=== PATIENT | female | born 1990 | race African-American/Black ===

== ENCOUNTER 2019-01-18 12:34 | Inpatient (IN) ==
--- OUTSIDE RECORDS SUMMARY | 2019-01-18 12:38 | External Medical Summary | Continuity of Care Document ---
:1990 Author Name Josephine Hollingsworth, Provider Address Unavailable Unavailable , Care Team Providers Name Role Phone Aundrea Rivers M.D. Unavailable [email or web address] Unavailable Unavailable Unavailable Problems BCP ( control pills) initiation (V25.01) (Z30.011) Normal (V22.2) (Z34.90) Allergies and Adverse Reactions No Known Allergies (Allergy) Medications Vitamins TABS Refills: 0 Procedures BCP ( control pills) initiation Immunizations Immunizations not documented Plan of Treatment Planned Observations Planned Goals not documented Results No Known Results Results not documented
[2019-01-18 13:18] LABS: Hematocrit (blood only) 41.8 % (37-47); Hemoglobin 14.2 g/dL (12.0-16.0); Mean Corpuscular Volume 88.6 fL (80-100); Platelet Count 205 K/uL (130-400); RDW Coefficient of Variation 13.5 % (11.5-14.5); RDW Standard Deviation 44.2 fL (36.4-46.3); Red Blood Count 4.72 M/uL (4.2-5.4)
[2019-01-18] MEDS ORDERED: MoRPHine SULFATE 4 MG/ML 1 ML CARP\\VIAL IV STA ×2 (13:21→15:20)
[2019-01-18] MEDS ORDERED: ONDANSETRON INJ 2 MG/ML 2 ML VIAL IV STA (13:21)
[2019-01-18] MEDS ORDERED: SODIUM CHLORIDE 0.9% 1000ML 1,000 ML IV ONE ×2 (13:21→15:09)
[2019-01-18 13:24] LABS: Appearance Urine Turbid (Clear); Bacteria Urine Automated Negative (Negative); Blood Urine 3+ (Negative); Color Urine Orange; Epithelial Cell Urine Auto >30 /lpf (0-5); Glucose Urine UA Negative (Negative); Ketones Urine 1+ (Negative); Leukocyte Esterase Urine Trace (Negative); Nitrite Urine Positive (Negative); Protein Urine 2+ (Negative); Specific Gravity Urine > 1.045 (1.000-1.030); Urobilinogen Urine Negative (Negative); WBC Urine Automated >30 /hpf (0-5)
--- NOTE | 2019-01-18 13:30 | Emergency Department Note ---
History of Present Illness General Chief complaint: Abdominal Pain Stated complaint: ABDOMINAL PAIN, UPPER VAGINAL PRESSURE, Time Seen by Provider: 01/18/19 13:01 History of Present Illness Maximum Pain Intensity: 8 This patient is a 28-year-old female who presents to the emergency department via private vehicle for evaluation of lower abdominal pain that started last night. Is gotten progressively worse since. It is worse with any movement. She also complains of a pressure-like sensation when she tries to urinate. She denies any hematuria or dysuria. She reports feeling feverish last night with chills and sweats, but did not take her temperature at home. She has tried anti-inflammatories with minimal relief. Last menstrual cycle was January 01 and reportedly normal. No new sexual partners or dyspareunia reported. She does have a history of ovarian cyst. Home Medications Home Medications Medication Instructions Recorded Confirmed Type ibuprofen 400 mg PO Q6H PRN 01/18/19 01/18/19 History Allergies Allergy/AdvReac Type Severity Reaction Status Date / Time nickel Allergy Mild RASH Unverified 01/18/19 14:00 tramadol AdvReac Unknown Unverified 01/18/19 14:03 Past Med/Surg History Medical History Ovarian cyst Social History Preferred Language: Slovenian Communication Ability: Effective Repair Weaver Required: No Beliefs That Will Affect Care: None Current Living Situation: Family and Significant Other Current Living Situation Comment: Boyfriend and brother Other Information That Helps Us Care for You: No Feels Safe at Home: Yes Safety Concerns: Feels Safe At This Time Smoking Status: Current every day smoker Tobacco Type: cigarettes ; Cigarettes Per Day: 20 ; Do You Dip or Chew Tobacco: No ; Second Hand Exposure: No ; Tobacco Cessation Education Requested by Patient: No Hx Alcohol Use: Yes Hx Substance Use: No Review of Systems A total of 10 systems reviewed and were otherwise negative Physical Exam Vital Signs Vital Signs - 24 hr 01/18/19 12:48 01/18/19 14:45 01/18/19 16:02 Temperature 37.0 C Temperature Source Oral Sepsis Recent Fever Within 48 Hours No Sepsis New/Unexplained Change in Mental Status No Sepsis Action Taken by Nursing No Action Required Pulse Rate 120 H Pulse Rate [Apical] 81 95 H Respiratory Rate 20 18 18 Respiratory Effort / Characteristics Non-Labored Spontaneous Respiratory Depth Normal Blood Pressure 123/80 Blood Pressure [Left Radial Artery] 132/83 139/68 Blood Pressure Mean 94 Blood Pressure Mean [Left Radial Artery] 99 91 Blood Pressure Position Sitting Pulse Oximetry 99 98 98 Oxygen Delivery Method Room Air Constitutional WD/WN, vitals as above Eyes EOM intact bilaterally ENMT external ear and nose normal, oropharynx normal Neck trachea midline Respiratory normal respiratory effort, lungs clear to auscultation Cardiovascular RRR, no murmur, no edema Gastrointestinal (Abdomen) Tenderness to palpation over the suprapubic region. Guarding in the area noted. Bowel sounds present, but hypoactive. Mild bilateral equal CVA tenderness bilaterally. Musculoskeletal no cyanosis or clubbing, extremities motor strength 5/5 Skin no rashes, warm and dry Neurologic Alert and oriented x3. No focal motor deficits. Psychiatric Acting appropriately Course Patient was seen and examined Vital signs including blood pressure were reviewed medications list was verified with patient Labs were obtained, and a saline lock was established The patient was ordered morphine 4 mg IV, Zofran 4 mg IV and 1 L of normal saline Imaging was performed and reviewed Upon reassessment, the patient's pain is coming back. She was ordered 2 additional doses of IV pain medication. The case was discussed with my supervising physician who is in agreement with my plan. The case was discussed with FRONT END LOADER DRIVER. They recommended giving the patient off oxygen in addition to doxycycline. These were ordered. The patient was updated. She was in agreement with the plan. Case management was involved. The patient will be evaluated by FRONT END LOADER DRIVER for further management. Consultations Consultation #1: Dr. Eduardo Administered Medications Acetaminophen (Tylenol) 650 mg PO Q4H PRN PRN Reason: Pain or Fever Stop: 02/17/19 17:39 Last Admin: 01/18/19 21:17 Dose: 650 mg Documented by: [id number] Docusate Sodium (Colace) 100 mg PO BID PRN PRN Reason: Constipation Stop: 02/18/19 20:59 Last Admin: 01/19/19 14:03 Dose: 100 mg Documented by: [id number] Doxycycline Hyclate (Vibramycin) 100 mg PO BID PRISCA; Protocol Stop: 01/29/19 08:59 Last Admin: 01/20/19 08:08 Dose: 100 mg Documented by: [id number] Admin: 01/19/19 20:51 Dose: 100 mg Documented by: [id number] Admin: 01/19/19 08:55 Dose: 100 mg Documented by: [id number] Lactated Ringer's (Lr) 1,000 mls @ 75 mls/hr IV .[id number] PRISCA Stop: 02/17/19 17:44 Last Infusion: 01/20/19 14:13 Dose: 75 mls/hr Documented by: [id number] Admin: 01/20/19 13:17 Dose: 75 mls/hr Documented by: [id number] Infusion: 01/20/19 13:17 Dose: 75 mls/hr Documented by: [id number] Infusion: 01/20/19 12:34 Dose: 75 mls/hr Documented by: [id number] Infusion: 01/20/19 11:59 Dose: 0 mls/hr Documented by: [id number] Admin: 01/19/19 23:41 Dose: 75 mls/hr Documented by: [id number] Infusion: 01/19/19 23:18 Dose: 75 mls/hr Documented by: [id number] Infusion: 01/19/19 19:12 Dose: 75 mls/hr Documented by: [id number] Infusion: 01/19/19 14:10 Dose: 75 mls/hr Documented by: [id number] Infusion: 01/19/19 12:35 Dose: 75 mls/hr Documented by: [id number] Infusion: 01/19/19 11:33 Dose: 0 mls/hr Documented by: [id number] Admin: 01/19/19 08:56 Dose: 75 mls/hr Documented by: [id number] Infusion: 01/19/19 08:56 Dose: 75 mls/hr Documented by: [id number] Infusion: 01/19/19 06:15 Dose: 75 mls/hr Documented by: [id number] Infusion: 01/19/19 05:39 Dose: 0 mls/hr Documented by: [id number] Infusion: 01/19/19 00:25 Dose: 75 mls/hr Documented by: [id number] Infusion: 01/18/19 23:51 Dose: 0 mls/hr Documented by: [id number] Admin: 01/18/19 18:55 Dose: 75 mls/hr Documented by: [id number] Acetaminophen (Ofirmev) 1,000 mg in 100 mls @ 400 mls/hr IV Q8H PRN PRN Reason: Moderate Pain Stop: 02/17/19 17:48 Last Infusion: 01/19/19 12:35 Dose: 0 mls/hr Documented by: [id number] Admin: 01/19/19 12:13 Dose: 400 mls/hr Documented by: [id number] Infusion: 01/19/19 01:15 Dose: 0 mls/hr Documented by: [id number] Admin: 01/19/19 00:59 Dose: 400 mls/hr Documented by: [id number] Cefoxitin Sodium 2,000 mg/ (Dextrose) 60 mls @ 100 mls/hr IV Q6H [facility]; Protocol Stop: 01/29/19 00:00 Last Infusion: 01/20/19 12:34 Dose: 0 mls/hr Documented by: [id number] Admin: 01/20/19 11:58 Dose: 100 mls/hr Documented by: [id number] Infusion: 01/20/19 06:35 Dose: 0 mls/hr Documented by: [id number] Admin: 01/20/19 05:50 Dose: 100 mls/hr Documented by: [id number] Infusion: 01/20/19 00:20 Dose: 0 mls/hr Documented by: [id number] Admin: 01/19/19 23:42 Dose: 100 mls/hr Documented by: [id number] Infusion: 01/19/19 23:42 Dose: 0 mls/hr Documented by: [id number] Infusion: 01/19/19 18:38 Dose: 0 mls/hr Documented by: [id number] Admin: 01/19/19 18:04 Dose: 100 mls/hr Documented by: [id number] Infusion: 01/19/19 12:14 Dose: 0 mls/hr Documented by: [id number] Admin: 01/19/19 11:32 Dose: 100 mls/hr Documented by: [id number] Infusion: 01/19/19 06:15 Dose: 0 mls/hr Documented by: [id number] Admin: 01/19/19 05:39 Dose: 100 mls/hr Documented by: [id number] Infusion: 01/19/19 00:25 Dose: 0 mls/hr Documented by: [id number] Admin: 01/18/19 23:51 Dose: 100 mls/hr Documented by: [id number] Ibuprofen (Motrin) 600 mg PO Q6H PRN PRN Reason: Headache or Pain Stop: 02/19/19 07:49 Last Admin: 01/20/19 11:59 Dose: 600 mg Documented by: [id number] Ioversol (Optiray 320 100ml) 94 ml IV ONCE PRN PRN Reason: Interaction Checking Stop: 01/22/19 16:10 Last Admin: 01/18/19 16:13 Dose: 1 ml Documented by: [id number] Ketorolac Tromethamine (Toradol) 30 mg IV Q6H PRN PRN Reason: Pain Stop: 01/23/19 17:48 Last Admin: 01/19/19 20:22 Dose: 30 mg Documented by: [id number] Admin: 01/19/19 13:43 Dose: 30 mg Documented by: [id number] Admin: 01/19/19 07:15 Dose: 30 mg Documented by: [id number] Admin: 01/18/19 22:04 Dose: 30 mg Documented by: [id number] Miscellaneous (Remove Nicoderm Patch) 1 ea N/A HS [facility] Stop: 02/19/19 08:58 Last Admin: 01/20/19 08:10 Dose: 1 ea Documented by: [id number] Nicotine (Nicoderm Cq) 21 mg TD QAM [facility] Stop: 02/18/19 20:14 Last Admin: 01/20/19 08:11 Dose: 21 mg Documented by: [id number] Admin: 01/19/19 20:11 Dose: 21 mg Documented by: [id number] Ondansetron HCl (Zofran) 4 mg IV Q6H PRN PRN Reason: Nausea And Vomiting Stop: 02/17/19 17:39 Last Admin: 01/19/19 17:25 Dose: 4 mg Documented by: [id number] Admin: 01/18/19 19:00 Dose: 4 mg Documented by: [id number] Oxycodone/Acetaminophen (Percocet 5mg/325mg) 1 tab PO Q4H PRN PRN Reason: Pain Stop: 02/02/19 23:07 Last Admin: 01/20/19 13:14 Dose: 1 tab Documented by: [id number] Admin: 01/20/19 08:08 Dose: 1 tab Documented by: [id number] Admin: 01/20/19 00:33 Dose: 1 tab Documented by: [id number] Simethicone (Mylicon) 80 mg PO Q6H PRN PRN Reason: Gas or Constipation Stop: 02/18/19 13:48 Last Admin: 01/19/19 20:51 Dose: 80 mg Documented by: [id number] Admin: 01/19/19 14:39 Dose: 80 mg Documented by: [id number] Zolpidem Tartrate (Ambien) 5 mg PO HS PRN PRN Reason: Sleep Stop: 02/17/19 17:39 Last Admin: 01/20/19 00:26 Dose: 5 mg Documented by: [id number] Admin: 01/19/19 20:51 Dose: 5 mg Documented by: [id number] Admin: 01/19/19 01:36 Dose: 5 mg Documented by: [id number] Admin: 01/18/19 23:10 Dose: 5 mg Documented by: [id number] Discontinued Medications Docusate Sodium (Colace) Confirm Administered Dose 100 mg .ROUTE .STK-MED ONE Stop: 01/19/19 14:00 Last Admin: 01/19/19 16:48 Dose: Not Given Documented by: [id number] Doxycycline Hyclate (Vibramycin) 100 mg PO NOW STA Stop: 01/18/19 17:39 Last Admin: 01/18/19 17:59 Dose: 100 mg Documented by: [id number] Hydromorphone HCl (Dilaudid) 0.5 mg IV NOW STA Stop: 01/18/19 16:54 Last Admin: 01/18/19 17:08 Dose: 0.5 mg Documented by: [id number] Hydromorphone HCl (Dilaudid) 1 mg IV Q2H PRN PRN Reason: Pain Stop: 02/01/19 17:48 Last Admin: 01/19/19 16:58 Dose: 1 mg Documented by: [id number] Admin: 01/19/19 07:55 Dose: 1 mg Documented by: [id number] Sodium Chloride (Nss 1000ml) 1,000 mls @ 999 mls/hr IV .Q1H1M ONE Stop: 01/18/19 14:21 Last Infusion: 01/18/19 15:23 Dose: 0 mls/hr Documented by: [id number] Admin: 01/18/19 13:29 Dose: 999 mls/hr Documented by: [id number] Sodium Chloride (Nss 1000ml) 1,000 mls @ 999 mls/hr IV .Q1H1M ONE Stop: 01/18/19 16:09 Last Infusion: 01/18/19 16:44 Dose: 0 mls/hr Documented by: [id number] Admin: 01/18/19 15:18 Dose: 999 mls/hr Documented by: [id number] Ceftriaxone Sodium (Rocephin) 1,000 mg in 50 mls @ 100 mls/hr IV NOW STA Stop: 01/18/19 15:38 Last Infusion: 01/18/19 16:03 Dose: 0 mls/hr Documented by: [id number] Admin: 01/18/19 15:19 Dose: 100 mls/hr Documented by: [id number] Metronidazole (Flagyl) 500 mg in 100 mls @ 100 mls/hr IV NOW STA Stop: 01/18/19 17:50 Last Admin: 01/18/19 18:16 Dose: Not Given Documented by: [id number] Cefoxitin Sodium (Mefoxin) 2,000 mg in 60 mls @ 100 mls/hr IV NOW STA Stop: 01/18/19 18:13 Last Infusion: 01/18/19 18:40 Dose: 0 mls/hr Documented by: [id number] Admin: 01/18/19 17:59 Dose: 100 mls/hr Documented by: [id number] Morphine Sulfate (Morphine Sulfate) 4 mg IV NOW STA Stop: 01/18/19 13:22 Last Admin: 01/18/19 13:28 Dose: 4 mg Documented by: [id number] Morphine Sulfate (Morphine Sulfate) 4 mg IV NOW STA Stop: 01/18/19 15:21 Last Admin: 01/18/19 15:26 Dose: 4 mg Documented by: [id number] Ondansetron HCl (Zofran) 4 mg IV NOW STA Stop: 01/18/19 13:22 Last Admin: 01/18/19 13:28 Dose: 4 mg Documented by: [id number] Medical Decision Making Medical Records Attestation: I reviewed the patient's medical records. Home Medications Current Medication List: was personally reviewed by me Laboratory Data Attestation: I reviewed the patient's lab results. Result diagrams: 01/20/19 09:00 01/18/19 13:08 Lab Results 01/18/19 01/18/19 01/18/19 Range/Units 13:08 13:08 13:10 WBC 23.80 H (4.8-10.8) K/uL RBC 4.72 (4.2-5.4) M/uL Hgb 14.2 (12.0-16.0) g/dL Hct 41.8 (37-47) % MCV 88.6 (80-100) fL MCH 30.1 (25-34) pg MCHC 34.0 (32-36) g/dL RDW Std Deviation 44.2 (36.4-46.3) fL RDW Coeff of [place] 13.5 (11.5-14.5) % Plt Count 205 (130-400) K/uL MPV 11.0 H (7.4-10.4) fL Immature Gran % (Auto) 0.5 % Neut % (Auto) 91.1 % Lymph % (Auto) 3.9 % Hood % (Auto) 4.5 % Eos % (Auto) 0.0 % Baso % (Auto) 0.0 % Immature Gran # (Auto) 0.11 H (0.00-0.02) K/uL Neut # (Auto) 21.68 H (1.4-6.5) K/uL Lymph # (Auto) 0.92 L (1.2-3.4) K/uL Hood # (Auto) 1.08 H (0.11-0.59) K/uL Eos # (Auto) 0.00 (0-0.5) K/uL Baso # (Auto) 0.01 (0-0.2) K/uL Sodium 138 (136-145) mmol/L Potassium 3.4 L (3.5-5.1) mmol/L Chloride 104 (98-107) mmol/L Carbon Dioxide 27 (21-32) mmol/L Anion Gap 7.0 (3-11) BUN 14 (7-18) mg/dl Creatinine 0.76 (0.6-1.2) mg/dl Est Cr Clr Drug Dosing Not Reportable Est GFR ( Amer) 125.5 Est GFR (Non-Af Amer) 108.3 BUN/Creatinine Ratio 18.3 (10-20) Glucose 103 H (70-99) mg/dl Calcium 8.8 (8.5-10.1) mg/dl Total Bilirubin 0.8 (0.2-1) mg/dl AST 9 L (15-37) U/L ALT 13 (12-78) U/L Alkaline Phosphatase 72 (45-117) U/L Total Protein 7.1 (6.4-8.2) gm/dl Albumin 3.6 (3.4-5.0) gm/dl Globulin 3.5 (2.5-4.0) gm/dl Albumin/Globulin Ratio 1.0 (0.9-2) Lipase 40 L (73-393) U/L HCG, Qual (Negative) Urine Color Urine Appearance (Clear) Urine pH (4.5-7.5) Ur Specific Gonzales (1.000-1.030) Urine Protein (Negative) Urine Glucose (UA) (Negative) Urine Ketones (Negative) Urine Blood (Negative) Urine Nitrite (Negative) Urine Bilirubin (Negative) Urine Urobilinogen (Negative) Ur Leukocyte Esterase (Negative) Urine WBC (Auto) (0-5) /hpf Urine RBC (Auto) (0-4) /hpf U Hyaline Cast (Auto) (0-5) /lpf U Epithel Cells (Auto) (0-5) /lpf Urine Bacteria (Auto) (Negative) Urine Mucus (None Prsent) Urine Yeast POC Ur Test NEG (NEG) 01/18/19 01/18/19 Range/Units 13:10 15:08 WBC (4.8-10.8) K/uL RBC (4.2-5.4) M/uL Hgb (12.0-16.0) g/dL Hct (37-47) % MCV (80-100) fL MCH (25-34) pg MCHC (32-36) g/dL RDW Std Deviation (36.4-46.3) fL RDW Coeff of [place] (11.5-14.5) % Plt Count (130-400) K/uL MPV (7.4-10.4) fL Immature Gran % (Auto) % Neut % (Auto) % Lymph % (Auto) % Hood % (Auto) % Eos % (Auto) % Baso % (Auto) % Immature Gran # (Auto) (0.00-0.02) K/uL Neut # (Auto) (1.4-6.5) K/uL Lymph # (Auto) (1.2-3.4) K/uL Hood # (Auto) (0.11-0.59) K/uL Eos # (Auto) (0-0.5) K/uL Baso # (Auto) (0-0.2) K/uL Sodium (136-145) mmol/L Potassium (3.5-5.1) mmol/L Chloride (98-107) mmol/L Carbon Dioxide (21-32) mmol/L Anion Gap (3-11) BUN (7-18) mg/dl Creatinine (0.6-1.2) mg/dl Est Cr Clr Drug Dosing Est GFR ( Amer) Est GFR (Non-Af Amer) BUN/Creatinine Ratio (10-20) Glucose (70-99) mg/dl Calcium (8.5-10.1) mg/dl Total Bilirubin (0.2-1) mg/dl AST (15-37) U/L ALT (12-78) U/L Alkaline Phosphatase (45-117) U/L Total Protein (6.4-8.2) gm/dl Albumin (3.4-5.0) gm/dl Globulin (2.5-4.0) gm/dl Albumin/Globulin Ratio (0.9-2) Lipase (73-393) U/L HCG, Qual Negative (Negative) Urine Color Bledsoe Urine Appearance Turbid A (Clear) Urine pH 6.0 (4.5-7.5) Ur Specific Gonzales > 1.045 H (1.000-1.030) Urine Protein 2+ H (Negative) Urine Glucose (UA) Negative (Negative) Urine Ketones 1+ H (Negative) Urine Blood 3+ H (Negative) Urine Nitrite Positive A (Negative) Urine Bilirubin Negative (Negative) Urine Urobilinogen Negative (Negative) Ur Leukocyte Esterase Trace H (Negative) Urine WBC (Auto) >30 H (0-5) /hpf Urine RBC (Auto) >30 H (0-4) /hpf U Hyaline Cast (Auto) 1-5 (0-5) /lpf U Epithel Cells (Auto) >30 H (0-5) /lpf Urine Bacteria (Auto) Negative (Negative) Urine Mucus Present A (None Prsent) Urine Yeast Not Reportable POC Ur Test (NEG) Imaging Data Attestation: I personally reviewed and interpreted this imaging study as follows: Radiologist's Impression: CT abdomen and pelvis with IV and oral contrast IMPRESSION: 1. No evidence of bowel obstruction. No evidence of free air 2. Normal appendix. No evidence of acute diverticulitis 3. Bilateral ovarian cysts/follicles. Possible left-sided hydrosalpinx. 4. There is mild infiltration of the fat superior to the left adnexa. This could be on an infectious/inflammatory basis. Clinical correlation to help confirm or exclude a tubo-ovarian abscess is recommended Electronically signed by: Irineo Monet M.D. 01/18/2019 4:32 PM Dictated: 01/18/19 1618 Transcribed: 01/18/191617 Transvaginal ultrasound IMPRESSION: 1. Complex 42 mm left ovarian cyst with irregular mural projections. Although statistically functional, given the irregularity a 6 week follow-up ultrasound is recommended 2. Minimal endometrial fluid. Electronically signed by: Irineo Monet M.D. 01/18/2019 3:07 PM Dictated: 01/18/19 1503 Transcribed: 01/18/19 1503 MDM Narrative Differential diagnosis: Appendicitis, ovarian cyst, ectopic , ovarian torsion, uterine fibroids, bowel perforation, cholecystitis, gastroenteritis, pyelonephritis, UTI, STI, ureteral stone, among others This patient is a 28-year-old female who presents to the emergency department complaining of lower abdominal pain, fever and chills. On exam, she was significantly uncomfortable. Her abdomen was tender. Labs reveal significant leukocytosis and a urinalysis is likely consistent with UTI. Further imaging was performed. This is concerning for a possible tubo-ovarian abscess. The patient was covered with antibiotics. The case was discussed with FRONT END LOADER DRIVER. The patient will be evaluated for likely inpatient management. Patient was comfortable with this plan Impression & Plan Tubo-ovarian abscess Discharge Plan Visit Data *Final* Discharge Date/Time: 01/18/19 18:30 Chief Complaint: Abdominal Pain Stated Complaint: ABDOMINAL PAIN, UPPER VAGINAL PRESSURE, ED Provider: Alfonso Gamboa ED Midlevel Provider: Sandhya Tavares Discharge Problem: Tubo-ovarian abscess Patient Disposition: Admitted As Inpatient Condition: Serious Discharge Instructions Interventions: ED Discharge Assessment Last Done: 01/18/19 18:30
[2019-01-18 13:35] LABS: Alanine Aminotransferase 13 U/L (12-78); Albumin Level 3.6 gm/dl (3.4-5.0); Aspartate Aminotransferase 9 U/L (15-37); BUN Creatinine Ratio 18.3 (10-20); Blood Urea Nitrogen 14 mg/dl (7-18); Calcium 8.8 mg/dl (8.5-10.1); Carbon Dioxide 27 mmol/L (21-32); Chloride 104 mmol/L (98-107); Est GFR (African American) 125.5; Est GFR (Non-African American) 108.3; Glucose 103 mg/dl (70-99); Potassium 3.4 mmol/L (3.5-5.1); Sodium 138 mmol/L (136-145)
[2019-01-18 13:37] LABS: Alkaline Phosphatase 72 U/L (45-117); Bilirubin,Total 0.8 mg/dl (0.2-1); Globulin 3.5 gm/dl (2.5-4.0); Total Protein 7.1 gm/dl (6.4-8.2)
[2019-01-18 13:44] LABS: Basophils # (auto) 0.01 K/uL (0-0.2); Immature Granulocytes # (auto) 0.11 K/uL (0.00-0.02); Immature Granulocytes % (auto) 0.5 %; Lymphocytes # (auto) 0.92 K/uL (1.2-3.4); Lymphocytes % (auto) 3.9 %; Monocytes # (auto) 1.08 K/uL (0.11-0.59); Monocytes % (auto) 4.5 %; Neutrophils # (auto) 21.68 K/uL (1.4-6.5); Neutrophils % (auto) 91.1 %
[2019-01-18 13:50] LABS: Bilirubin Urine Negative (Negative); Ictotest Urine Negative (Negative)
[2019-01-18 13:53] LABS: Mucus Urine Present (None Prsent); RBC Urine Automated >30 /hpf (0-4)
--- NOTE | 2019-01-18 15:08 | Ultrasound Report ---
EXAMINATION: PELVIC ULTRASOUND (transabdominal and endovaginal scanning) CLINICAL HISTORY: Pelvic pain. History of ovarian cyst. COMPARISON STUDY: FINDINGS: Following transabdominal scanning, endovaginal scanning was performed as the ovaries were not visuali zed transabdominally. The uterus measured 9.4 x 3.8 x 4.5 cm. The endometrial stripe measured 11 mm. There is minimal endometrial fluid present.. The right ovary measured 38 x 29 x 33 mm. There is a 27 mm follicle.. The left ovary measured 64 x 42 x 38 mm. There is a complex 42 mm left ovarian cyst with irregular mu ral projections. Given the patient's age this likely represents a complex functional cyst. Given curtis lainey the irregularity, a six-week follow-up ultrasound is recommended.. There is no ultrasonographic evidence of ovarian torsion. It should be noted that ovarian torsion can be present with normal Doppler ultrasonographic findings. There is a small amount of free pelvic fluid. IMPRESSION: 1. Complex 42 mm left ovarian cyst with irregular mural projections. Although statistically functiona l, given the irregularity a 6 week follow-up ultrasound is recommended 2. Minimal endometrial fluid. Electronically signed by: Irineo Monet M.D. 01/18/2019 3:07 PM
[2019-01-18] MEDS ORDERED: cefTRIAXone SODIUM 1,000 MG/50 ML BAG IV STA (15:09)
[2019-01-18 15:36] LABS: Pregnancy Test, Serum Negative (Negative)
[2019-01-18] MEDS ORDERED: IOVERSOL 100ml IV PRN (16:11)
--- NOTE | 2019-01-18 16:34 | CT Scan Report ---
CT abd pelvis oral and IV con CLINICAL HISTORY: lower abd pain n/v COMPARISON STUDY: Pelvic ultrasound dated 01/18/2019 TECHNIQUE: The patient was scanned following administration of dilute oral contrast, and in a dynamic helical fashion during intravenous administration of 94 cc of Optiray 320 A dose lowering technique was utilized adhering to the principles of ALARA. CT DOSE: 522.36 mGy.cm FINDINGS: Lower chest: The heart is normal in size and configuration, without pericardial effusion. The lung ba ses and pleural spaces are clear. Liver: There is a 3 mm hypodensity within the lateral segment the left lobe the liver. This is of christian btful acute clinical significance. Gallbladder: Unremarkable. Spleen: Normal in size and attenuation. Pancreas: Unremarkable. Adrenal glands: Unremarkable. Kidneys: There is symmetric renal cortical enhancement. The kidneys are normal in size without hydron ephrosis. Bowel: There are no transition zones to indicate bowel obstruction. The appendix appears normal. Ther e is no evidence of acute diverticulitis. Peritoneum: There is trace free pelvic fluid. There is no free intraperitoneal air. Vasculature: The abdominal aorta is normal in course and caliber. Adenopathy: None. Pelvic viscera: There are bilateral ovarian follicles. There is a fluid-filled somewhat tubular struc ture in the left adnexa region possibly representing a hydrosalpinx. There is infiltration of the fat superior to the left adnexa. Clinical correlation to help confirm or exclude a tubo-ovarian abscess is recommended Skeletal structures: No destructive osseous lesions are seen. IMPRESSION: 1. No evidence of bowel obstruction. No evidence of free air 2. Normal appendix. No evidence of acute diverticulitis 3. Bilateral ovarian cysts/follicles. Possible left-sided hydrosalpinx. 4. There is mild infiltration of the fat superior to the left adnexa. This could be on an infectious/ inflammatory basis. Clinical correlation to help confirm or exclude a tubo-ovarian abscess is recomme nded Electronically signed by: Irineo Monet M.D. 01/18/2019 4:32 PM
[2019-01-18] MEDS ORDERED: metroNIDAZOLE 500 MG/100 ML BAG IV STA (16:51)
[2019-01-18] MEDS ORDERED: HYDROmorphone INJ 0.5 MG/0.5 ML SYR IV STA (16:53)
[2019-01-18] MEDS ORDERED: DOXYCYCLINE HYCLATE 100 MG CAP PO STA (17:38)
[2019-01-18] MEDS ORDERED: cefOXitin 2,000 MG/60 ML BAG IV STA (17:38)
[2019-01-18] MEDS ORDERED: ACETAMINOPHEN 325 MG TAB PO PRN (17:40)
[2019-01-18] MEDS ORDERED: LORazepam 0.5 MG TAB PO PRN (17:40)
[2019-01-18] MEDS: LACTATED RINGER'S 1,000 ML IV SCH (18:55)
[2019-01-18] MEDS: ONDANSETRON INJ 2 MG/ML 2 ML VIAL IV PRN (19:00)
--- NOTE | 2019-01-18 20:20 | History & Physical Report ---
Date of Service January 18, 2019 Assessment & Plan (1) Hydrosalpinx: consistent with PID and possible Tubovarian abscess (2) PID (acute pelvic inflammatory disease): chalm & GC were done in the ER & results are pending. She received one dose of Rocephin in the ER as well as the first dose of doxycyline orally. we will continue doxycycline q 12 hrs & mefoxin 2 gms Q 6hrs, Check CBC 's daily. repeat ultrasound/CT scan in 48-72 hours if no improvement in WBC count or pain level. manage pain with IV tylenol, toradol & dilaudid to start. Switch to oral pain meds as tolerated. History of Present Illness Primary Care Provider: NO PCP Patient it a 28 yo female who presents to the ER toay with diffuse lower abdominal pain. The pain started 24 hours ago & got worse over today.it is localized to the lower abdomen and is described as an aching pain that first start as rectal pressure. She ahd chills & sweats last night but did not take her temperature. She ahs had no dysuria, urgency, frequency or flank pain. No diarrhea or constipation. She ahd some nausea on arrival in [facility] but this ahs since resolved. She has not eatedn anything in about 12 hours. no change is vaginal discharge. LMP was 01/01 & was normal. Periods have been regular. She is sexually active with one partner. No new partners recently. She was treated for Chlamydia 6 years ago & had negative follow up testing. She does not use any control , co condoms. She has had one vaginal delivery 9 years ago. had been uncomplicated. As part of her workup in the ER, HCG is negative CBC shows WBC of 23,000 with elevated neutrophils. Oninitial assessment oin the ER, she is Afebrile. Pelvic ultrasound shows a 4cm complex cyst on the left ovary with a dilated tubular structure adjacent to it. No free fluid. uterus otherwise is normal. Right ovary ahs a small follicle but is otherwise normal adnexa. CT scan shows normal appendix with the 4 cm left complex cyst as well as evidence of inflammatory changes surrounding the left adnexa. no evidence of diverticulitis. Allergies Allergy/AdvReac Type Severity Reaction Status Date / Time nickel Allergy Mild RASH Unverified 01/18/19 14:00 tramadol AdvReac Unknown Unverified 01/18/19 14:03 Home Medications Home Medications Medication Instructions Recorded Confirmed Type ibuprofen 400 mg PO Q6H PRN 01/18/19 01/18/19 History Patient History Medical History Ovarian cyst Social History Preferred Language: Citizen Of [place] Communication Ability: Effective Electronic Scale Subassembler Required: No Beliefs That Will Affect Care: None Current Living Situation: Family and Significant Other Current Living Situation Comment: Boyfriend and brother Other Information That Helps Us Care for You: No Feels Safe at Home: Yes Safety Concerns: Feels Safe At This Time Smoking Status: Current every day smoker Tobacco Type: cigarettes ; Cigarettes Per Day: 20 ; Do You Dip or Chew Tobacco: No ; Second Hand Exposure: No ; Tobacco Cessation Education Requested by Patient: No Hx Alcohol Use: Yes Hx Substance Use: No Review of Systems All systems reviewed & are unremarkable except as noted in HPI & below Physical Exam Constitutional: WD/WN, vitals as above Respiratory: normal respiratory effort, lungs clear to auscultation Cardiovascular: RRR, no murmur, no edema Gastrointestinal (Abdomen): Inspection/Auscultation: abdomen normal to inspection and + hypoactive bowel sounds Percussion/Palpation: + abdomen tender, + guarding and abdomen soft Psychiatric: A+Ox3, euthymic affect Genitourinary: pelvic exam deferred at this time due to patient's intolerance to the exam because of pain. Results & Data Vital Signs (Past 12 Hours) Vital Signs Temp Pulse Pulse Resp BP BP Pulse Ox 01/18/19 19:15 100.9 F H 98 H 16 115/75 98 01/18/19 18:51 99.5 F 110 H 16 139/80 98 01/18/19 18:06 82 167/75 H 98 01/18/19 16:02 95 H 18 139/68 98 01/18/19 14:45 81 18 132/83 98 01/18/19 12:48 98.6 F 120 H 20 123/80 99 Code Status & VTE Plan VTE Prophylaxis Plan VTE Prophylaxis will be ordered: No
[2019-01-18] MEDS: KETOROLAC 30 MG/ML VIAL IV PRN (22:04)
[2019-01-18] MEDS: ZOLPIDEM TARTRATE 5 MG TAB PO PRN (23:10)
[2019-01-18] MEDS: cefOXitin 2,000 MG in DEXTROSE 5% 50 ML IV SCH (23:51)
[2019-01-19] MEDS: ACETAMINOPHEN 1,000 MG/100 ML VIAL IV PRN ×2 (00:59→12:13)
[2019-01-19] MEDS: ZOLPIDEM TARTRATE 5 MG TAB PO PRN ×2 (01:36→20:51)
[2019-01-19] MEDS: cefOXitin 2,000 MG in DEXTROSE 5% 50 ML IV SCH ×4 (05:39→23:42)
[2019-01-19 07:06] LABS: Basophils # (auto) 0.02 K/uL (0-0.2); Basophils % (auto) 0.1 %; Eosinophils # (auto) 0.03 K/uL (0-0.5); Eosinophils % (auto) 0.2 %; Hemoglobin 11.9 g/dL (12.0-16.0); Immature Granulocytes # (auto) 0.05 K/uL (0.00-0.02); Immature Granulocytes % (auto) 0.3 %; Lymphocytes # (auto) 1.19 K/uL (1.2-3.4); Lymphocytes % (auto) 6.1 %; Mean Corpuscular Volume 88.6 fL (80-100); Mean Platelet Volume 10.8 fL (7.4-10.4); Monocytes # (auto) 1.28 K/uL (0.11-0.59); Monocytes % (auto) 6.6 %; Neutrophils # (auto) 16.93 K/uL (1.4-6.5); Neutrophils % (auto) 86.7 %; Platelet Count 168 K/uL (130-400); RDW Coefficient of Variation 13.7 % (11.5-14.5); RDW Standard Deviation 44.3 fL (36.4-46.3); Red Blood Count 3.95 M/uL (4.2-5.4)
[2019-01-19] MEDS: KETOROLAC 30 MG/ML VIAL IV PRN ×3 (07:15→20:22)
[2019-01-19] MEDS: HYDROmorphone INJ 1 MG/ML SYRINGE IV PRN ×2 (07:55→16:58)
[2019-01-19] MEDS: DOXYCYCLINE HYCLATE 100 MG CAP PO SCH ×2 (08:55→20:51)
[2019-01-19] MEDS: LACTATED RINGER'S 1,000 ML IV SCH ×2 (08:56→23:41)
--- NOTE | 2019-01-19 11:00 | Gynecologic Progress Note ---
Date of Service January 19, 2019 Assessment & Plan (1) PID (acute pelvic inflammatory disease): continue current care plan with Mefoxin & doxycycline pending culture results. WBC count is slightly lower but this may be due to hemodilution. Subjective Patient states that her pain & abdominal pressure is no worse but no better. Controlled with IV tylenol, toradol & IV dilaudid. no change in vaginal discharge or bleeding. She had a temperature elevation to 39 at 2100 last night. Tolerating regular diet. Review of Systems Review of Systems: All systems reviewed & are unremarkable except as noted in HPI & below Physical Exam Constitutional: WD/WN, vitals as above Gastrointestinal (Abdomen): Inspection/Auscultation: + abdomen distended and + hypoactive bowel sounds Percussion/Palpation: + abdomen tender, + guarding and abdomen soft Results & Data Vital Signs (Past 12 Hours) Vital Signs Temp Pulse Resp BP Pulse Ox 01/19/19 07:20 99.5 F 96 H 18 119/74 96 01/19/19 04:30 99.0 F 88 16 115/79 97 01/18/19 23:10 99.0 F 96 H 20 145/80 H 98 PG Care Time/CCT Total # of Minutes Spent Total Time Spent with Patient: Total time spent is greater than 50% in coordination of care (as documented) at patient's floor/unit and/or counseling patient:
[2019-01-19] MEDS ORDERED: DOCUSATE SODIUM 100 MG CAP PO PRN (13:49)
[2019-01-19] MEDS ORDERED: DOCUSATE SODIUM 100 MG CAP ONE (13:59)
[2019-01-19] MEDS: SIMETHICONE 80 MG CHEW PO PRN ×2 (14:39→20:51)
[2019-01-19] MEDS: ONDANSETRON INJ 2 MG/ML 2 ML VIAL IV PRN (17:25)
[2019-01-19] MEDS: NICOTINE 21 MG/24 HR TDSY TD SCH (20:11)
[2019-01-20] MEDS: ZOLPIDEM TARTRATE 5 MG TAB PO PRN ×3 (00:26→22:26)
[2019-01-20] MEDS: OXYCODONE/ACETAMINOPHEN 5mg/325mg TAB PO PRN ×5 (00:33→22:26)
[2019-01-20] MEDS: cefOXitin 2,000 MG in DEXTROSE 5% 50 ML IV SCH ×4 (05:50→23:48)
--- NOTE | 2019-01-20 07:59 | Gynecologic Progress Note ---
Date of Service January 20, 2019 Assessment & Plan (1) PID (acute pelvic inflammatory disease): Clinically the patient is improving continue IV antibiotics until afebrile for 48 hours to consider pelvic ultrasound to reassess left adnexa. CBC is pending. Subjective no nausea now, no diarrhea. urinating without difficulty. no vaginal bleeding or increased discharge. was ambulating in the hallway without difficulty last evening. pain controlled with 1 percocet last night as well. Review of Systems Review of Systems: All systems reviewed & are unremarkable except as noted in HPI & below Physical Exam Constitutional: WD/WN, vitals as above Respiratory: normal respiratory effort, lungs clear to auscultation Cardiovascular: RRR, no murmur, no edema Gastrointestinal (Abdomen): Inspection/Auscultation: abdomen normal to inspection and normal bowel sounds; abdomen not distended Percussion/Palpation: + abdomen tender (tender on left >right- less tender), abdomen soft and normal to percussion; no guarding Results & Data Vital Signs (Past 12 Hours) Vital Signs Temp Pulse Resp BP Pulse Ox 01/20/19 04:45 98.8 F 106 H 18 150/88 H 95 01/20/19 00:30 98.2 F 88 16 123/81 100 PG Care Time/CCT Total # of Minutes Spent Total Time Spent with Patient: Total time spent is greater than 50% in coordination of care (as documented) at patient's floor/unit and/or counseling patient:
[2019-01-20] MEDS: DOXYCYCLINE HYCLATE 100 MG CAP PO SCH ×2 (08:08→21:05)
[2019-01-20] MEDS: NICOTINE 21 MG/24 HR TDSY TD SCH (08:11)
[2019-01-20 09:12] LABS: Basophils # (auto) 0.01 K/uL (0-0.2); Basophils % (auto) 0.1 %; Eosinophils # (auto) 0.06 K/uL (0-0.5); Eosinophils % (auto) 0.6 %; Hematocrit (blood only) 33.7 % (37-47); Hemoglobin 11.3 g/dL (12.0-16.0); Immature Granulocytes # (auto) 0.02 K/uL (0.00-0.02); Immature Granulocytes % (auto) 0.2 %; Lymphocytes # (auto) 1.07 K/uL (1.2-3.4); Lymphocytes % (auto) 10.3 %; Mean Corpuscular Hgb Conc 33.5 g/dL (32-36); Mean Corpuscular Volume 88.7 fL (80-100); Mean Platelet Volume 10.4 fL (7.4-10.4); Monocytes # (auto) 0.86 K/uL (0.11-0.59); Monocytes % (auto) 8.3 %; Neutrophils % (auto) 80.5 %; Platelet Count 159 K/uL (130-400); RDW Coefficient of Variation 13.8 % (11.5-14.5); RDW Standard Deviation 44.4 fL (36.4-46.3); White Blood Count 10.42 K/uL (4.8-10.8)
[2019-01-20] MEDS ORDERED: Nursing to Pharmacy Communication ONE (09:45)
[2019-01-20] MEDS: IBUPROFEN 600 MG TAB PO PRN (11:59)
[2019-01-20] MEDS: LACTATED RINGER'S 1,000 ML IV SCH (13:17)
--- NOTE | 2019-01-20 17:38 | Gynecologic Progress Note ---
Date of Service January 20, 2019 Assessment & Plan (1) Tubo-ovarian abscess: Plan repeat ultrasound tomorrow. (2) Hydrosalpinx: (3) PID (acute pelvic inflammatory disease): Will be 24 hours afebrile at 9pm tonight. Plan to continue iv into early am. Then will transition to oral doxy, flagyl (gardrenella on culture), and cipro (e coli on vaginal culture). She is agreeable and is hoping to go home tomorrow. 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 Will have to see how she is feeling tomorrow. Subjective Patient doing well. Notes she continues to feel some pressure now lower and in her back. no n/v. No issues with bowel or bladder. Has taken minimal amounts of oral pain meds today. No iv pain meds. Physical Exam Constitutional: WD/WN, vitals as above Gastrointestinal (Abdomen): Inspection/Auscultation: abdomen normal to inspection; abdomen not distended Percussion/Palpation: + abdomen tender (lainey slight tendernes to palpation) and abdomen soft; no guarding Psychiatric: A+Ox3, euthymic affect Results & Data Vital Signs (Past 12 Hours) Vital Signs Temp Pulse Pulse Resp BP BP Pulse Ox 01/20/19 15:30 36.6 C 84 18 132/87 99 01/20/19 11:55 37.7 C H 98 H 18 137/83 97 01/20/19 07:55 37.2 C 101 H 16 124/83 98 PG Care Time/CCT Total # of Minutes Spent Total Time Spent with Patient: Total time spent is greater than 50% in coordination of care (as documented) at patient's floor/unit and/or counseling patient:
[2019-01-21] MEDS: LACTATED RINGER'S 1,000 ML IV SCH ×2 (03:22→08:47)
[2019-01-21 06:02] LABS: Basophils # (auto) 0.01 K/uL (0-0.2); Basophils % (auto) 0.1 %; Eosinophils # (auto) 0.04 K/uL (0-0.5); Eosinophils % (auto) 0.3 %; Hematocrit (blood only) 34.7 % (37-47); Hemoglobin 11.6 g/dL (12.0-16.0); Immature Granulocytes # (auto) 0.02 K/uL (0.00-0.02); Immature Granulocytes % (auto) 0.2 %; Lymphocytes # (auto) 1.11 K/uL (1.2-3.4); Lymphocytes % (auto) 9.7 %; Mean Corpuscular Hgb Conc 33.4 g/dL (32-36); Mean Corpuscular Volume 88.1 fL (80-100); Mean Platelet Volume 10.6 fL (7.4-10.4); Monocytes # (auto) 0.98 K/uL (0.11-0.59); Monocytes % (auto) 8.5 %; Neutrophils # (auto) 9.34 K/uL (1.4-6.5); Neutrophils % (auto) 81.2 %; Platelet Count 193 K/uL (130-400); RDW Coefficient of Variation 13.6 % (11.5-14.5); RDW Standard Deviation 43.7 fL (36.4-46.3); Red Blood Count 3.94 M/uL (4.2-5.4)
[2019-01-21] MEDS: cefOXitin 2,000 MG in DEXTROSE 5% 50 ML IV SCH (06:10)
[2019-01-21] MEDS: IBUPROFEN 600 MG TAB PO PRN (07:56)
--- NOTE | 2019-01-21 08:04 | Ultrasound Report ---
US pelvic complete CLINICAL HISTORY: f/u [facility] PAIN COMPARISON STUDY: 01/18/2019 FINDINGS: The uterus measured 9 cm. The endometrial stripe measured 9 mm. The right ovary measured 4.8 cm maximum dimension. 2.7 cm complex cyst.. The left ovary measured 4 cm maximum dimension. Complex cysts measuring 4 and 2 cm. Possible dilatati on of the left uterine tube.. There is no ultrasonographic evidence of ovarian torsion. It should be noted that ovarian torsion can be present with normal Doppler ultrasonographic findings. There was no evidence of pathologic free pelvic fluid. IMPRESSION: 1. Unchanged complex left ovarian cyst. 2. Additional 2 cm slightly complex left ovarian cyst with moderate prominence of the left uterine tu be. 3. 2 cm complex right ovarian cyst. 4. These findings are slightly progressive in terms of number compared to the prior study. Continued close follow up is indicated. The above report was generated using voice recognition software. It may contain grammatical, syntax or spelling errors. Electronically signed by: Octavio Bronson M.D. 01/21/2019 8:02 AM
--- NOTE | 2019-01-21 08:16 | Gynecologic Progress Note ---
Date of Service January 21, 2019 Assessment & Plan (1) Tubo-ovarian abscess: Await ultrasound results. (2) PID (acute pelvic inflammatory disease): d/c iv antibiotics, transition to orals for 14 day course. Sent to her pharmacy. Likely d/c home today . d/c instructions reviewed. Encouraged patient to use ibuprofen first for pain management and narcotics if needed. f/u in office early next week. (3) Hydrosalpinx: Subjective Did well overnight. No pain meds. Just back from uS this am. Eating breakfast, no n/v. Notes continued lower pressure and now more cramping since the ultrasound. No bleeding. Not sure when she will get period, breasts feels sore so think she ovulated. Review of Systems Review of Systems: All systems reviewed & are unremarkable except as noted in HPI & below Physical Exam Constitutional: WD/WN, vitals as above Gastrointestinal (Abdomen): Inspection/Auscultation: abdomen normal to inspection; abdomen not distended Percussion/Palpation: abdomen soft; no guarding slight tenderness to palpation of the lower abdomen. Psychiatric: A+Ox3, euthymic affect Results & Data Vital Signs (Past 12 Hours) Vital Signs Temp Pulse Pulse Resp BP BP Pulse Ox 01/21/19 07:18 37.5 C 98 H 18 130/85 99 01/21/19 03:20 37.8 C H 97 H 16 138/81 96 01/20/19 23:50 37 C 96 H 16 144/86 H 96 01/20/19 20:45 36.8 C 107 H 21 156/80 H 99 PG Care Time/CCT Total # of Minutes Spent Total Time Spent with Patient: Total time spent is greater than 50% in coordination of care (as documented) at patient's floor/unit and/or counseling patient:
[2019-01-21] MEDS: DOXYCYCLINE HYCLATE 100 MG CAP PO SCH (08:36)
[2019-01-21] MEDS: NICOTINE 21 MG/24 HR TDSY TD SCH (08:38)
[2019-01-21] MEDS ORDERED: CIPROFLOXACIN 500 MG TAB PO SCH (09:00)
[2019-01-21] MEDS ORDERED: metroNIDAZOLE 500 MG TAB PO SCH (09:00)
--- NOTE | 2019-01-21 11:05 | Obstetrical Progress Note ---
Date of Service January 21, 2019 Subjective Feeling somewhat better since ultrasound. US shows left and right ovarian functional-appearing cysts with moderate prominence of left fallopian tube. She is eating/drinking well and ambulating ok. Afebrile >24h. She would like to go home. Reviewed discharge instructions again, questions answered. Note given to return to work Jan 23. RTO within 1 week for reeval. Results & Data Vital Signs (Past 12 Hours) Vital Signs Temp Pulse Pulse Resp BP Pulse Ox 01/21/19 07:18 37.5 C 98 H 18 130/85 99 01/21/19 03:20 37.8 C H 97 H 16 138/81 96 01/20/19 23:50 37 C 96 H 16 144/86 H 96 PG Care Time/CCT Total # of Minutes Spent Total Time Spent with Patient: Total time spent is greater than 50% in coordination of care (as documented) at patient's floor/unit and/or counseling patient:
--- NOTE | 2019-01-21 13:21 | Discharge Summary ---
PRINCIPAL DIAGNOSIS: Pelvic inflammatory disease and a left tubo-ovarian abscess. HISTORY OF PRESENT ILLNESS AND HOSPITAL COURSE: The patient is a 28-year-old G1, P1-0-0-1 white female who presented to the Emergency Room with diffuse lower abdominal pain. The pain has started 24 hours prior to her arrival in the Emergency Room and it seemed to be localized to the lower abdomen. On her evaluation in the Emergency Room at which point GC and chlamydia, RNA were done, she had a white count of 23,000, but was afebrile. Because ultrasound revealed a complex cyst on the left ovary with possible left hydrosalpinx, she was admitted with the diagnosis of pelvic inflammatory disease and possible tubo-ovarian abscess. She did have a history of having chlamydia 6 years ago for which she had been treated and had a negative test of cure. During her hospital stay, she did have a temperature elevation to 39. She had been begun on Mefoxin 2 grams every 6 hours and doxycycline 100 mg twice a day orally. She did not have another temperature elevation after the original temperature elevation. Her symptoms slowly resolved. She was clinically improving with less pelvic pain, no unusual vaginal discharge and she had been remaining afebrile and tolerating p.o. antibiotics. Her white count on admission was 23,800, first half day on antibiotics was 19,500. On 01/20/2019, white count was 10,400 and today at discharge is 11,500. She is being sent home with prescriptions for Cipro 500 mg b.i.d., doxycycline 100 mg b.i.d., ibuprofen 600 mg p.o. q. 6 hours p.r.n. pain and metronidazole 500 mg b.i.d. She is also being sent home with the prescriptions for Percocet 1 tablet every 4 hours as needed for pain. Her followup ultrasound today showed no increase in the size of the left ovarian irregular cyst and no change in the hydrosalpinx. She will be on the antibiotics for another 10 days. She would need to be seen in the office for a followup visit which she will schedule here in the next 2 weeks. We will also do an ultrasound at approximately 6 weeks to be sure that the ovarian cyst and hydrosalpinx are resolving.
[2019-01-21 14:01] LABS: Chlamydia Trach RNA NOT DETECTED (NOT DETECTED); GC (Neis gonorrhoeae) RNA NOT DETECTED (NOT DETECTED)
--- NOTE | 2019-01-21 15:57 | Pharmacy Report ---
ED Pharmacist Culture FollowUP - Culture Follow Up Note Date of Service: January 21, 2019 Notes:: Patient's blood culture 1/3 preliminary positive for gram positive bacilli, 2/3 no growth at 48 hours. Would suspect this is contamination as other culture negative, resulted past 48 hours. Reviewed inpatient course, alerted Dr. Eduardo who was patient's discharging physician, who is monitoring cultures. Also briefly discussed with Dr. [place] roberts with Dr. Thurman monitoring.
== END 2019-01-21 11:25 | disposition home or self-care (01) | DRG 759 ==
LOC: ED 12:34 → 4N 17:42